=== PATIENT | female | born 1955 | race Caucasian/White ===

== ENCOUNTER 2020-02-26 09:32 | Emergency (ER) | payer MEDICARE, SELFPAY ==
[2020-02-26 09:34] VITALS: BP 177/89; PULSE 82; RESP 17; TEMP 36.2; O2SAT 97; BMI 25.3
--- NOTE | 2020-02-26 10:10 | EKG12_ITS ---
Test Reason : CP Blood Pressure : / mmHG Vent. Rate : 083 BPM Atrial Rate : 083 BPM P-R Int : 160 ms QRS Dur : 080 ms QT Int : 386 ms P-R-T Axes : 058 011 035 degrees QTc Int : 453 ms Normal sinus rhythm with sinus arrhythmia Nonspecific ST abnormality Abnormal ECG Confirmed by SELVIN SHIRLEY, TIFFANIE ([id number]), newspaper copy editor KYLE RIVERS ([id number]) on 02/28/2020 11:26:54 AM Referred By: MARILYN Confirmed By:TIFFANIE MONTALVO MD
--- NOTE | 2020-02-26 10:11 | RAD_ITS ---
STUDY: X-RAY CHEST REASON FOR EXAM: Female, 64 years old. Intermittent epigastric chest pain, weakness, fatigue x1 week. TECHNIQUE: PA and lateral views of the chest. COMPARISON: None. FINDINGS: The lungs are hyperinflated. There is nonspecific minimal fine linear markings within the lung bases suggesting fibrotic change. There is no demonstrated pleural abnormality. Normal size heart. Normal mediastinum and jim. Normal visualized pulmonary arteries. There is atherosclerotic calcification of the aortic arch with tortuosity. Normal visualized thoracic spine. Normal visualized ribs, clavicles, and shoulders. There is no demonstrated abnormality of the visualized soft tissue structures of the upper abdomen. RAD/Chest PA and Lateral IMPRESSION: Nonspecific hyperinflation of the lungs no visualized acute focal infiltrate. Electronically Signed: Nitza Gomez MD at 11:21 EST Tel , Service support ,
[2020-02-26 10:18] LABS: Absolute Lymphocyte Count 2.53 X10^3/uL (0.83-4.51); Absolute Neutrophil Count 6.9 X10^3/uL (2.0-7.7); Basophil# 0.04 X10^3/uL; Basophil% 0.4 % (0-1); Eosinophil# 0.12 X10^3/uL; Eosinophils% 1.2 % (0-5); Hematocrit 39.9 % (37-47); Hemoglobin 13.6 g/dL (12.0-15.0); Lymphocyte # 2.53 X10^3/ul (4.0); Lymphocyte % 24.3 % (19-41); Mean Corp Hgb Conc 34.1 g/dL (32-36); Mean Corpuscular Hgb 31.9 pg (27.0-32.0); Mean Corpuscular Volume 93.7 fL (81-99); Mean Platelet Vol. 10.9 fl (6.2-12.0); Monocyte# 0.79 X10^3/uL; Monocyte% 7.6 % (0-10); NRBC Flagged by Analyzer 0 % (0-5); Neutrophil % 66.2 % (47-70); Platelet Count 290 K/mm3 (150-450); RBC Distribution Width CV 12.7 % (11.6-14.6); Red Blood Count 4.26 M/mm3 (4.2-5.4); White Blood Count 10.4 K/mm3 (4.4-11.0)
--- NOTE | 2020-02-26 10:25 | ED.VIS.GEN ---
History of Present Illness Chief Complaint: Chest Pain Informant: Patient Onset: Days Context: Gradual Onset Timing: Intermittent Narrative: She 4-year-old female presenting with worsening heartburn as well as substernal chest pain. Patient states she never really had any heartburn but starting the summer started having a little bit of heartburn here and there. Over the past week or 2 it has been getting worse. She states she gets a burning sensation in her epigastric stomach and associated nausea. Symptoms worse after she eats. She denies any radiation of the pain. She also notes that for the past few days she is at intermittent pain in the center of her chest. States it feels like there is a lump in her chest. The pain does not radiate. Again is intermittent. She not tried any [id number] medications has not found any clear aggravating relieving factors. She notes she has had some increased frequency of urination but denies any other symptoms including fever, cough, vomiting or change in bowel habits. Patient checked her blood pressure last night and was elevated at 173/93 and again this morning it was 173/104. She does have a history of hypertension. Because her blood pressure continue to be elevated and addition to her symptoms she decided come to the emergency room today. Past Medical History - Allergies and Home Meds Allergies/Adverse Reactions: Allergies amoxicillin [From Augmentin] Allergy (Verified 02/26/20 09:33) blood in stool clavulanic acid [From Augmentin] Allergy (Verified 02/26/20 09:33) blood in stool Primary Care Physician: Tammy Gupta EMPLOYMENT SPECIALIST/PROGRAM MANAGER, EMPLOYMENT SPECIALIST/PROGRAM MANAGER-C [Primary Care Provider] - Past Medical History: - - Hypertension, hyperlipidemia Surgical History: appendectomy, hysterectomy Smoking Status: Never smoker Review of Systems General: Denies: Chills, Fever, Sweats Eyes: Denies: Visual changes - bilaterally, Diplopia ENT: Denies: Rhinorrhea, Sore throat Cardiovascular: Reports: Chest pain. Denies: Palpitations Respiratory: Denies: Dyspnea, Cough, Dyspnea on exertion Gastrointestinal: Reports: Abdominal pain, Nausea. Denies: Vomiting, Diarrhea, Melena, Hematochezia Genitourinary: Denies: Dysuria, Hematuria, Frequency Musculoskeletal: Denies: Back pain, Extremity Pain Skin: Denies: Rash, Wounds Neurological: Denies: Headache, Weakness, Numbness Physical Exam Vital Signs/Narrative: Vital Signs Temp Pulse Resp BP Pulse Ox 02/26/20 09:34 97.1 F L 82 17 177/89 H 97 Inital Vital Signs reviewed: Yes General: Well nourished, Well developed, No Acute Distress Head: Normocephalic, Atraumatic Eyes: Perrl, EOMI ENT: Moist mucous membranes, No rhinorrhea Neck: Supple, Nontender, No JVD Cardiovascular: Regular rate, Regular rhythm, No murmurs Respiratory: No distress, CTA bilaterally, Chest nontender Abdomen: Soft, Nontender, Nondistended, Normal bowel sounds. Negative for: Tender, Guarding, Rebound tenderness, Rossi's sign Back: Nontender, Normal Inspection. Negative for: CVA tenderness Extremities: Nontender, No edema Skin: Normal color, No rash Neurological: Alert, Oriented x3, Cranial nerves II-XII grossly intact, Normal Strength, Normal Sensation Psychological: Normal affect, Normal Mood Diagnostic/Tx/Re-eval Clinical Impression(s) from Imaging Studies Chest X-Ray 02/26/20 10:11 IMPRESSION: Nonspecific hyperinflation of the lungs no visualized acute focal infiltrate. Electronically Signed: Nitza Gomez MD at 11:21 EST Tel , Service support , Abdomen/Pelvis CT 02/26/20 11:21 IMPRESSION: 1. Distal descending colon diverticulitis. No focal abscess or pneumoperitoneum. 2. Pancreatic atrophy with multiple pancreatic cysts measuring up to 1.9 cm. Definitive characterization/follow-up with MRI/MRCP recommended, according to ACR guidelines. Electronically Signed: Austyn Maldonado MD ([place]) at 12:34 EST , Service support , Laboratory Data 02/26/20 02/26/20 02/26/20 09:50 09:50 10:30 WBC 10.4 RBC 4.26 Hgb 13.6 Hct 39.9 MCV 93.7 MCH 31.9 MCHC 34.1 RDW Std Deviation 43.0 RDW Coeff of Juju 12.7 Plt Count 290 MPV 10.9 Immature Gran % (Auto) 0.300 Neut % (Auto) 66.2 Lymph % (Auto) 24.3 Bremer % (Auto) 7.6 Eos % (Auto) 1.2 Baso % (Auto) 0.4 Absolute Neuts (auto) 6.9 Absolute Lymphs (auto) 2.53 Nucleated RBC % 0 Sodium 139 Potassium 3.3 L Chloride 103 Carbon Dioxide 30.0 Anion Gap 6 BUN 17 Creatinine 0.74 Estim Creat Clear Calc 47.79 Est GFR (MDRD) Af Amer 101 Est GFR (MDRD) Non-Af 83 BUN/Creatinine Ratio 23.0 H Glucose 101 Calcium 9.0 Total Bilirubin 0.40 Direct Bilirubin 0.11 AST 21 ALT 29 Alkaline Phosphatase 77 Troponin I < 0.015 Total Protein 7.9 Albumin 3.8 Globulin 4.1 Lipase 45 L Urine Color Yellow Urine Clarity Clear Urine pH 7.0 Ur Specific Troy 1.010 Urine Protein Negative Urine Glucose (UA) Normal Urine Ketones Negative Urine Occult Blood 150 H Urine Nitrite Negative Urine Bilirubin Negative Urine Urobilinogen Normal Ur Leukocyte Esterase 25 H Urine RBC 10-25 SEEN Urine WBC 0 SEEN Ur Squamous Epith Cells 0-5 SEEN Urine Bacteria 0 SEEN Urine Mucus 0 SEEN 02/26/20 13:56 WBC RBC Hgb Hct MCV MCH MCHC RDW Std Deviation RDW Coeff of Juju Plt Count MPV Immature Gran % (Auto) Neut % (Auto) Lymph % (Auto) Bremer % (Auto) Eos % (Auto) Baso % (Auto) Absolute Neuts (auto) Absolute Lymphs (auto) Nucleated RBC % Sodium Potassium Chloride Carbon Dioxide Anion Gap BUN Creatinine Estim Creat Clear Calc Est GFR (MDRD) Af Amer Est GFR (MDRD) Non-Af BUN/Creatinine Ratio Glucose Calcium Total Bilirubin Direct Bilirubin AST ALT Alkaline Phosphatase Troponin I < 0.015 Total Protein Albumin Globulin Lipase Urine Color Urine Clarity Urine pH Ur Specific Troy Urine Protein Urine Glucose (UA) Urine Ketones Urine Occult Blood Urine Nitrite Urine Bilirubin Urine Urobilinogen Ur Leukocyte Esterase Urine RBC Urine WBC Ur Squamous Epith Cells Urine Bacteria Urine Mucus - Rhythm Strip Rhythm Strip: Sinus Rhythm Rate: 83 Ectopy: None - EKG Initial EKG Interpretation: Sinus Rhythm, - - Sinus rhythm at a rate of 83 Normal axis Normal intervals Normal ST segments - Medical Decision Making Patient evaluated for nonspecific abdominal pain. She also has a lump in her chest. Physical exam is quite benign. She was hypertensive prior to arrival but her blood pressure seems to be improving without intervention. Cardiac work-up including EKG and delta troponin is negative. I have a low suspicion for ACS as a cause of her pain. I think patient stable for outpatient cardiac evaluation however I suspect her acid reflux is more the cause of her chest discomfort.CBC is normal as well as her BMP. Her lipase is normal. Patient's urine does show 150 microscopic hematuria. Because of this I did obtain CT of her abdomen and pelvis with IV contrast looking for cause of the hematuria. Patient is found to have acute descending distal diverticulitis. There is no signs of abscess or free air. Patient has a history of allergy to Augmentin so she is placed on Cipro and Flagyl for treatment of this. This is likely the cause of her abdominal pain. She is also incidentally found to have pancreatic cyst and is informed of this and need for outpatient follow-up for further evaluation. Patient's pain is mild and she does not require any pain medication in the emergency room. She is counseled on return precautions. She is instructed to follow-up with her primary care doctor. She verbalizes agreement and understanding of this plan. ED Disposition - Plan for ED Patient: Disposition: Home or Assisted Living Diagnosis: Diverticulitis large intestine, Abnormal CT of the abdomen, Chest pain of uncertain etiology Instructions: ED Chest Pain Atypical Unkn Cause, ED Diverticulitis Prescriptions: Ciprofloxacin [Cipro] 500 mg PO BID #14 tab Transmission Status: Received by [id number] metroNIDAZOLE [Flagyl] 500 mg PO Q8H #21 tab Transmission Status: Received by [id number] Ondansetron [Zofran Odt] 4 mg PO Q8H PRN PRN #10 tab PRN Reason: Nausea Transmission Status: Received by [facility] [id number] Referrals: PodlogTammy pal NP, EMPLOYMENT SPECIALIST/PROGRAM MANAGER-C [Primary Care Provider] - Additional Instructions: Alternate Tylenol and ibuprofen for pain. Take the full course of antibiotics. Follow-up with your primary care provider next week for reevaluation or return the emergency room if you have worsening symptoms. Your CT did show a cyst of your pancreas that does recommend further follow-up and evaluation not emergently. Please discuss this with your primary care provider.
[2020-02-26 10:30] LABS: AST(SGOT) 21 U/L (15-37); Alanine Aminotransfer ALT/SGPT 29 U/L (13-56); Albumin, Serum 3.8 g/dL (3.2-5.0); Alkaline Phosphatase 77 U/L (45-117); Anion Gap 6 (5-15); BUN 17 mg/dL (7-18); Bilirubin, Direct 0.11 mg/dL (0.00-0.30); Chloride 103 mmol/L (98-107); Creatinine, Serum 0.74 mg/dL (0.55-1.02); EST Glomerular Filtration Rate 83 mL/min (>60); Est Glom Filt Rate - Afr Amer 101 mL/min (>60); Estimated Creatinine Clearance 47.79 ml/min; Globulin 4.1 g/dL (2.2-4.2); Glucose 101 mg/dL (74-106); Lipase 45 U/L (73-393); Potassium 3.3 mmol/L (3.5-5.1); Protein, Total 7.9 g/dL (6.4-8.2); Sodium Level 139 mmol/L (136-145)
[2020-02-26 10:37] LABS: Bacteria 0 SEEN /hpf (None Seen); Mucous, Urine 0 SEEN /hpf (<or=2+); White Blood Cells 0 SEEN /hpf (0-5)
[2020-02-26 10:52] LABS: Color, Urine Yellow (Yellow); Glucose, Dipstick Normal (Normal); Ketone-Dipstick Negative (Negative); Leukocyte Esterase-Dipstick 25 /ul (Negative); Nitrite-Dipstick Negative (Negative); Occult Blood-Urine 150 /ul (Negative); Protein-Dipstick Negative (Negative); Urine Bilirubin Dipstick Negative (Negative); Urine Clarity Clear (Clear); Urine Urobilinogen Normal (Normal)
[2020-02-26 11:00] VITALS: BP 118/74; PULSE 82; RESP 15; O2SAT 96
[2020-02-26 11:00] LABS: Red Blood Cells-Urine 10-25 SEEN /hpf (0-5); Squamous Epithelial Cells - UA 0-5 SEEN /hpf (5-10)
--- NOTE | 2020-02-26 11:21 | CT_ITS ---
STUDY: CT ABDOMEN AND PELVIS WITH CONTRAST REASON FOR EXAM: Female, 64 years old. intermittent epigastric chest pain, weakness, and fatigue x1 week RADIATION DOSAGE (If Supplied By Facility): CTDIvol = ( 15.14 ) mGy, DLP = ( 836.38 ) mGycm TECHNIQUE: Transaxial images were obtained from the dome of the diaphragm to the symphysis pubis without oral contrast. IV 100mL Isovue-300 was administered. Sagittal and coronal images were reconstructed. Individualized dose optimization techniques were used for this CT. COMPARISON: None. FINDINGS: The visualized lung bases are unremarkable. The visualized portions of the heart are within normal limits. Normal liver. Normal gallbladder and extrahepatic biliary system. Normal spleen. There is diffuse atrophy of the pancreas. There are multiple cysts of the pancreatic body and tail with the largest measuring 1.9 cm. Normal bilateral adrenal glands. Normal right kidney. Normal left kidney. Normal visualized stomach. Normal small intestine. There is diverticulosis, with thickening of the distal descending colon wall, and pericolonic inflammation changes consistent with acute diverticulitis. No focal abscess or pneumoperitoneum. There is non-visualization of the appendix. There is diffuse atherosclerotic calcification of the abdominal aorta, without a demonstrated aneurysm. Normal inferior vena cava. Normal retroperitoneum. Normal urinary bladder. Normal abdominal wall. There are diffuse degenerative changes of the visualized lumbar spine. CT/Abdomen/Pelvis W IV Cont ONLY IMPRESSION: 1. Distal descending colon diverticulitis. No focal abscess or pneumoperitoneum. 2. Pancreatic atrophy with multiple pancreatic cysts measuring up to 1.9 cm. Definitive characterization/follow-up with MRI/MRCP recommended, according to ACR guidelines. Electronically Signed: Austyn Maldonado MD ([place]) at 12:34 EST , Service support ,
[2020-02-26] MEDS: Famotidine 200 MG/20 ML MDV 20 MG in 0.9% Normal Saline (Pres. free 8 ML 300 MG IV (11:27)
[2020-02-26 13:03] VITALS: BP 143/82; PULSE 71; RESP 18; O2SAT 96
[2020-02-26 14:02] VITALS: BP 132/77; PULSE 84; RESP 17; O2SAT 99
[2020-02-26 15:05] VITALS: BP 122/83; PULSE 66; RESP 12; O2SAT 97
[2020-02-26] MEDS: Ciprofloxacin 250 MG Tablet 500 MG PO (15:09)
[2020-02-26] MEDS: metroNIDAZOLE 500 MG Tablet PO (15:09)
== END 2020-02-26 15:11 | disposition home or self-care (01) ==
PROVIDERS: Emergency Provider Emergency Medicine; PCP Nurse Practitioner Primary Care
DX: K57.32 Diverticulitis of large intestine without perforation or abscess without bleeding (principal); R94.8 Abnormal results of function studies of other organs and systems; R07.9 Chest pain, unspecified; E78.5 Hyperlipidemia, unspecified; I10 Essential (primary) hypertension; Z88.0 Allergy status to penicillin; Z88.1 Allergy status to other antibiotic agents; Z90.710 Acquired absence of both cervix and uterus
CPT/HCPCS: 71046; 74177; 80048; 80076; 81001; 83690; 84484; 85025; 93005; 99285; J7030; Q9967; A4216; J3490